=== PATIENT | male | born 1965 | race Caucasian/White ===

== ENCOUNTER 2017-11-06 22:09 | Inpatient (IN) | payer OTHER ==
[~2017-11-06] VITALS: Ht 167.6 cm; Wt 104.3 kg
[~2017-11-06 22:09] MED LIST: ADVIL COLD & S1 EAC1 PO; ASPIRIN325 PO; HYDROCODON-ACE1 EAC7 PO; KEFLEX500 MG PO; NORCO 5-325 TA1 EACH PO; OXYIR5 MG PO; PERCOCET 5-3251 EACH PO
[2017-11-06 22:11] VITALS: BP 146/88
[2017-11-06 22:44] LABS: HEMATOCRIT 44.9 % (42.0-52.0); HEMOGLOBIN 15.6 gm/dL (14.0-18.0); MCH 30.5 pg (26.0-34.0); MCHC 34.7 g/dL (28.0-37.0); MPV 9.7 fl. (7.2-11.1); NUCLEATED RBCS 1 /100WBC; PLATELET COUNT* 132 thou/uL (150-400); RDW-CV 12.7 % (10.5-14.5)
[2017-11-06 23:05] LABS: CREATININE 1.6 mg/dL (0.6-1.3); POTASSIUM 3.9 mmol/L (3.5-5.1)
[2017-11-06 23:10] LABS: TOTAL PROTEIN 8.2 g/dL (6.4-8.2)
[2017-11-06 23:25] LABS: ALBUMIN 3.3 g/dL (3.4-5.0)
[2017-11-07] LABS: ABSOLUTE EOSINOPHILS 0.1 thou/uL (0.0-0.7); ABSOLUTE LYMPHOCYTES 1.1 thou/uL (0.8-5.3); ABSOLUTE MONOCYTES 0.7 thou/uL (0.0-1.2); ANISOCYTOSIS Occasional; PLATELET ESTIMATE DECREASED; TOXIC GRANULATION 1+
[2017-11-07 00:09] VITALS: BP 128/46
[2017-11-07 01:13] VITALS: BP 106/65
[2017-11-07 06:16] LABS: HEMATOCRIT 40.2 % (42.0-52.0); MCH 30.9 pg (26.0-34.0); MCHC 34.8 g/dL (28.0-37.0); MCV 88.7 fL (80.0-100.0); MPV 9.6 fl. (7.2-11.1); RBC 4.53 mil/uL (4.50-6.00); RDW-CV 12.9 % (10.5-14.5); WBC 11.8 thou/uL (4.0-11.0)
[2017-11-07 06:30] LABS: ALBUMIN 2.8 g/dL (3.4-5.0); CREATININE 1.2 mg/dL (0.6-1.3); POTASSIUM 4.2 mmol/L (3.5-5.1); TOTAL BILIRUBIN 0.7 mg/dL (<0.1-1.0); TOTAL PROTEIN 6.4 g/dL (6.4-8.2)
--- NOTE | 2017-11-07 06:37 | NUR ---
ASSESSMENT COMPLETE. PT ADMITTED WITH RIGHT LEG CELLULITIS. IV ROCEPHIN AND VANC GIVEN. IV FLUIDS INFUSING. IV MORPHINE GIVEN ONCE FOR PAIN. PT HAS BEEN AFEBRILE SINCE ADMISSION TO THE UNIT. PT IS ON ROOM AIR WITH ADEQUATE SATS. PT IS WEAK AND UNSTEADY, BED ALARM ON. PT IS SLEEPING AT THIS TIME. SEE ASSESSMENT AND VITALS FOR OTHER DETAILS. CALL LIGHT WITHIN REACH, WILL CONTINUE PLAN OF CARE
[2017-11-07 08:15] VITALS: BP 124/67
[2017-11-07 16:00] VITALS: BP 123/73
--- NOTE | 2017-11-07 17:20 | NUR ---
PATIENT HAS BEEN SLEEPING MOST OF THE DAY, IS EASY TO WAKE UP BUT VERY DROWSY. MOTHER BROUGHT IN C PAP, PATIENT DOES NOT USE IT AT HOME, EDUCATED THAT IT NEEDS TO BE USED IT COULD HELP WITH HIS DROWSINESS. IV ANTIBIOTICS ARE DELAYED DUE TO IV ACCESS NOT BEING AVAILABLE TODAY. MOTHER HAS BEEN AT BEDSIDE ALL DAY AND VERY ATTENTIVE TO PATIENT, REQUESTING PAIN MEDS FOR EVEN WHILE ASLEEP. VITAL SIGNS ARE STABLE ON ROOM AIR. CALL LIGHT IS IN REACH, PATIENT IS UP AD NIK IN ROOM TO RESTROOM. WILL CONTINUE TO MONITOR.
[2017-11-07 19:40] VITALS: BP 118/68
--- NOTE | 2017-11-08 06:19 | NUR ---
ASSESSMENT COMPLETE. PT REPORTS PAIN IN RIGHT LEG, PRN PAIN MEDICATIONS GIVEN. PT IS ON ROOM AIR WITH ADEQAUTE SATS, CPAP AT HS FOR SLEEP APNEA. PT DENIES N/V. PT HAD FEVER, IBUPROFEN GIVEN AND FEVER CAME DOWN TO NORMAL. RIGHT LEG ELEVATED ON PILLOW. PT IS UP ONE ASSIST TO BATHROOM. PT TUNRS SELF IN BED. PT HAS IV FLUIDS INFUSING. PT IS FALL RISK, BED ALARM ON. SEE ASSESSMENT AND VITALS FOR OTHER DETAILS. CALL LIGHT WITHIN REACH, WILL CONTINUE PLAN OF CARE
[2017-11-08 08:00] VITALS: BP 146/75
[2017-11-08 08:53] LABS: HEMATOCRIT 38.7 % (42.0-52.0); HEMOGLOBIN 13.6 gm/dL (14.0-18.0); MCH 30.7 pg (26.0-34.0); MCHC 35.2 g/dL (28.0-37.0); MCV 87.2 fL (80.0-100.0); MPV 9.9 fl. (7.2-11.1); RBC 4.44 mil/uL (4.50-6.00); RDW-CV 12.9 % (10.5-14.5); WBC 7.5 thou/uL (4.0-11.0)
[2017-11-08 08:58] LABS: CALCIUM 8.3 mg/dL (8.5-10.1); CREATININE 1.1 mg/dL (0.6-1.3); MAGNESIUM 2.2 mg/dL (1.8-2.4); POTASSIUM 3.6 mmol/L (3.5-5.1)
[2017-11-08 16:50] VITALS: BP 133/71
--- NOTE | 2017-11-08 17:46 | NUR ---
PATIENT HAS BEEN SLEEPING MOST OF THE DAY, UP TO THE CHAIR FOR A SHORT AMOUNT OF TIME TODAY. SOME COMPLAINTS OF PAIN THAT IS CONTROLLED WITH ORAL PAIN MEDICATIONS. IV IN RIGHT AC WORKS WELL. VITAL SIGNS STABLE ON ROOM AIR. CALL LIGHT IS IN REACH, WILL TIFFANIE TO MONITOR.
[2017-11-08 19:46] VITALS: BP 124/71
--- NOTE | 2017-11-09 06:37 | NUR ---
ASSESSMENT COMPLETE. PT HAD FEVER, CAME DOWN TO 98.0 WITH IBUPROFEN AND HYDROCODONE. PT HAS IV FLUIDS INFUSING. PT IS FALL RISK, BED ALARM ON. SEE ASSESSMENT AND VITALS FOR OTHER DETAILS. CALL LIGHT WITHIN REACH, WILL CONTINUE PLAN OF CARE
[2017-11-09 08:20] VITALS: BP 114/67
[2017-11-09 11:22] VITALS: BP 114/67
--- NOTE | 2017-11-09 11:59 | NUR ---
CM SPOKE TO THE PATIENT TO DISCUSS HOME SITUATION, DISCHARGE PLANNING, AND TO INFORM OF THE ROLE OF CM. PATIENT ADMITTED FOR CELLULITIS AND I.D. IS NOW CONSULTED. PATIENT ALERT, ORIENTED, AND INDPENDENT WITH ADL'S. PATIENT WORKS AND DRIVES. PATIENT RESIDES AT HOME WITH HIS MOTHER. PATIENT OWNS A CPAP. PATIENT HAS NO HX OF OR SNF. PATIENT PLANS TO RETURN HOME AT D/C. CM WILL REMAIN AVAILABLE TO ASSIST AND FOLLOW NEEDED.
--- NOTE | 2017-11-09 14:07 | NUR ---
WOUND CARE NOTE: CONSULT RECEIVED FOR TUBIGRIP PLACEMENT. PATIENT WITH CELLULITIS TO RIGHT LOWER EXTREMITY. RED, HOT, EDEMATOUS. ORDERS IN PLACE FOR NYSTATIN TO AREA. MEASURED FOR A SIZE F TUBIGRIP. APPLIED, DOUBLE LAYER. PATIENT TOLERATED WELL. EDUCATED PATIENT ON IMPORTANCE OF KEEPING LEG ELEVATED AND USING COMPRESSION, COMMUNICATED UNDERSTANDING. EDUCATED PATIENT THAT IF THE COMPRESSION FEELS THAT IT IS TOO TIGHT TO NOTIFY HIS RN SO THEY CAN REMOVE.
[2017-11-09 16:00] VITALS: BP 126/72
--- NOTE | 2017-11-09 18:26 | NUR ---
PATIENT IS ALERT AND ORIENTED TODAY, MUCH MORE ALERT AND AWAKE THAN THE PAST SEVERAL DAYS. SOME COMPLAINTS OF PAIN THAT ARE CONTROLLED WITH ORAL PAIN MEDICATIONS. VITAL SIGNS HAVE BEEN STABLE ON ROOM AIR. ENCOURAGED PATIENT TO GET UP OUT OF BED FOR A WHILE, PATIENT REFUSED. CALL LIGHT IS IN REACH, WILL CONTINUE TO MONITOR.
[2017-11-09 23:54] VITALS: BP 134/74
[2017-11-10 05:05] LABS: HEMATOCRIT 36.9 % (42.0-52.0); HEMOGLOBIN 12.8 gm/dL (14.0-18.0); MCH 30.3 pg (26.0-34.0); MCHC 34.8 g/dL (28.0-37.0); MCV 87.2 fL (80.0-100.0); MPV 9.7 fl. (7.2-11.1); RBC 4.23 mil/uL (4.50-6.00); RDW-CV 13.1 % (10.5-14.5); WBC 7.9 thou/uL (4.0-11.0)
[2017-11-10 05:32] LABS: CALCIUM 8.1 mg/dL (8.5-10.1); POTASSIUM 3.6 mmol/L (3.5-5.1)
--- NOTE | 2017-11-10 05:57 | NUR ---
PATIENT SLEPT A LITTLE THIS SHIFT. IV FLUIDS AND IV ANTIBIOTICS WERE GIVEN ORDERED. PATIENT WAS GIVEN PAIN MEDS ONCE THIS SHIFT WITH GOOD RELIEF. WILL CONTINUE TO MONITOR.
--- NOTE | 2017-11-10 07:17 | CON ---
[address] [address] CONSULTATION Name: KELSEYPREETIALAN Everton Room: [address] IN M.R.#: [id number] Admission: 11/06/17 Attend Phys: Ade Jeffries MD Discharge: Date of : 65 Report #: [id number] THIS REPORT FOR: //name// CC: FAM physician/PCP Ade Jeffries DATE OF SERVICE: 11/09/2017 ATTENDING PHYSICIAN: Dr. Jeffries. REASON FOR EVALUATION: Slowly resolving right lower extremity skin and soft tissue infection with cellulitis. HISTORY OF PRESENT ILLNESS: Chart reviewed, the patient examined. This is a 52-year-old gentleman with history of hypertension, also apparently has lower extremity venous stasis insufficiency who had developed an abscess over the summer months, did require operative debridement. He is uncertain of any cultures being done. He noted there was infection associated with it around the medial aspect of the ankle for extended period of time. Over the last 8 days initially he has felt fatigued, thought he possibly had the flu, continued to be active, was subsequently found to have inflammatory eruption involving his right lower extremity. He was subsequently admitted on the with presumptive diagnosis of cellulitis. He was placed on vancomycin. In spite of that the leg has not evidently improved. He does say overall he feels better. He had previously had fevers to as high as 102.4, has been trending, most recently 98.4. He is not encephalopathic. Denies any pulmonary related complaints. He is constipated, no bowel movement for the last 5 days. ALLERGIES: None known. CURRENT MEDICATIONS: Include vancomycin, pantoprazole, morphine, nystatin, hydrocodone. PAST MEDICAL HISTORY: Hypertension, sleep apnea. SOCIAL HISTORY: Nonsmoker, occasional ethanol. FAMILY HISTORY: Noncontributory. REVIEW OF SYSTEMS: As above. PHYSICAL EXAMINATION: GENERAL: He is alert, cooperative, in [id number] distress secondary to leg pain, appears to be generally well nourished. VITAL SIGNS: Temperature 98.4, pulse 94, respirations 18, blood pressure 114/87. [place] [address] CONSULTATION Name: ALAN SCOTT Everton Room: [address]#: [id number] Admission: 11/06/17 Attend Phys: Ade Jeffries MD Discharge: Date of : 65 Report #: [id number] SKIN: Warm, dry. HEENT: Unremarkable. NECK: Supple. LUNGS: Generally clear. HEART: Regular. Borderline tachycardic. I do not appreciate a murmur. ABDOMEN: Soft. It is distended. There are no overt peritoneal signs. EXTREMITIES: Right lower extremity has moderate to marked inflammatory changes noted to below the knee. It is quite tender. Does not have any fluctuance. I do not appreciate any evidence of subcutaneous inflammatory masses or fluid collections. GENITOURINARY: Deferred. RECTAL: Deferred. LABORATORY DATA: Blood cultures are sterile thus far. Prealbumin 11.7. Electrolytes: Sodium 134, potassium 3.6, chloride 97, bicarbonate 31, BUN and creatinine 30 and 1.1. CBC: White count of 7.5, H and H 13.6 and 38.7, platelets of 103. Hemoglobin A1c 5.0. ASSESSMENT: Right lower extremity skin and soft tissue infection with cellulitis. I think there is a fairly high burden of toxin, it is slow to clear. We will continue elevation of the limb while in bed. Add compression and see if he tolerates. Continue the vancomycin. I think it is not likely staph or strep etiology, clinically some evidence of improvement. Treat the superficial yeast infection as well with nystatin. <ELECTRONICALLY SIGNED> By: Carlos Sosa MD 11/10/17 0717 [id number] Sosa MD /nt
[2017-11-10 07:50] VITALS: BP 117/69
[2017-11-10 16:00] VITALS: BP 121/68
--- NOTE | 2017-11-10 19:31 | NUR ---
PATIENT A&OX4, ROOM AIR, IV RIGHT HAND FLUIDS INFUSSING. UP AD NIK, STEADY GAIT. NO C/O PAIN/N/V. RIGHT LEG CELLULITIS, TUBA GRIB ON. YEAST TO GROIN AREA, NYSTATIN POWDERED ORDERED, PREFERS TO PUT ON HIMSELF. NO OTHER CONCERNS AT THIS TIME. APPROPRIATE AND COOPORATIVE WITH CARE.
[2017-11-10 22:22] VITALS: BP 136/58
[2017-11-11 05:09] LABS: HEMATOCRIT 37.7 % (42.0-52.0); MCH 30.3 pg (26.0-34.0); MCHC 34.5 g/dL (28.0-37.0); MCV 87.8 fL (80.0-100.0); MPV 9.4 fl. (7.2-11.1); RBC 4.29 mil/uL (4.50-6.00); RDW-CV 13.2 % (10.5-14.5); WBC 7.9 thou/uL (4.0-11.0)
[2017-11-11 05:32] LABS: ALBUMIN 2.4 g/dL (3.4-5.0); CALCIUM 8.1 mg/dL (8.5-10.1); CREATININE 0.9 mg/dL (0.6-1.3); MAGNESIUM 2.1 mg/dL (1.8-2.4); POTASSIUM 3.7 mmol/L (3.5-5.1); TOTAL BILIRUBIN 0.3 mg/dL (<0.1-1.0)
--- NOTE | 2017-11-11 06:08 | NUR ---
PATIENT SLEPT PART OF THE NIGHT. IV FLUIDS CONTINUE TO INFUSE ORDERED. PATIENT HAD NO COMPLAINTS OF PAIN. TUBIGRIP REMAINS TO RIGHT LEG. IV VANC WAS GIVEN ORDERED. WILL CONTINUE TO MONITOR.
[2017-11-11 09:00] VITALS: BP 140/82
--- NOTE | 2017-11-11 14:51 | NUR ---
WOUND CARE NOTE: REMEASURED FOR TUBIGRIP. PATIENT MEASURED FOR SIZE F TUBIGRIP. APPLIED DOUBLE LAYER TO RIGHT LEG. LEG IS STILL EDEMATOUS WITH ERYTHEMA.
[2017-11-11 16:57] VITALS: BP 153/81
--- NOTE | 2017-11-11 18:12 | NUR ---
PATIENT IN RECLINER WITH FEET ELEVATED. PATIENT DENIES ANY PAIN REQUIRING MEDICATION. PATIENT RIGHT LOWER LEG IS RED AND EDEMATOUS. TUBIGRIP CHANGED TODAY TO RLE. PATIENT IS UP AD NIK IN ROOM. PATIENT DID WORK WITH PHYSICAL THERAPY THIS AFTERNOON. PATIENT HAS GOOD APPETITE. PATIENT IS AFEBRILE. PATIENT DENIES ANY NEEDS AT THIS TIME. CALL LIGHT WITHIN REACH, WILL CONTINUE TO MONITOR.
--- NOTE | 2017-11-12 05:53 | NUR ---
PATIENT SLEPT MOST OF THE NIGHT. PATIENT HAD NO COMPLAINTS OF PAIN. PATIENT IS POSSIBLY GOING HOME TODAY OR TOMORROW. WILL CONTINUE TO MONITOR.
[2017-11-12 07:50] VITALS: BP 134/86
[2017-11-12] MEDS ORDERED: NYSTATIN15 G1 TOP (11:08)
[2017-11-12] MEDS ORDERED: HYDROCODON-ACE1 EAC7 PO (11:08)
[2017-11-12] MEDS ORDERED: TRAMADOL 50 MG50 MG PO (11:08)
[2017-11-12] MEDS ORDERED: MINOCIN100 MG PO (11:08)
[2017-11-12 11:58] VITALS: BP 153/81
--- NOTE | 2017-11-12 16:30 | NUR ---
PATIENT DISCHARGED TO HOME. DISCHARGE PAPERS REVIEWED AND SIGNED. PRESCRIPTIONS AND INFORMATION SHEETS GIVEN. NO IV. PATIENT DENIES ANY FURTHER NEEDS. PATIENT TAKEN BY WHEELCHAIR TO EXIT. LEFT WITH PARENTS.
== END 2017-11-12 16:13 | disposition home or self-care (01) | DRG 603 ==
LOC: M.ERS 22:09 → M.3W 23:22 → M.TBA-ER 23:22 → M.3W 11-07 00:16
PROVIDERS: Emergency Medicine; ADMIT Internal Medicine
DX: L03.115 Cellulitis of right lower limb (principal); E87.1 Hypo-osmolality and hyponatremia; F17.210 Nicotine dependence, cigarettes, uncomplicated; E86.0 Dehydration; I10 Essential (primary) hypertension; R73.9 Hyperglycemia, unspecified; B35.8 Other dermatophytoses; G47.33 Obstructive sleep apnea (adult) (pediatric); Z79.899 Other long term (current) drug therapy

== ENCOUNTER → 2020-04-30 | Outpatient (CLI) | payer OTHER ==
[~2020-04-30] MED LIST changes: +MINOCIN100 MG PO; +NYSTATIN15 G1 TOP; +TRAMADOL 50 MG50 MG PO
== END ==
LOC: M.CT 09:45
PROVIDERS: ATTEND Family Medicine
DX: E78.00 Pure hypercholesterolemia, unspecified (principal)